=== PATIENT | female | born 1945 | race Caucasian/White ===

== ENCOUNTER → 2016-11-10 | Outpatient (CLI) | payer OTHER ==
[~2016-11-10] MED LIST: ALPRAZOLAM0.5 MG PO; ASPIRIN81 MG PO; CITRATE OF MAG296 M1 PO; COLACE PO; COLACE50 MG PO; DESYREL100 MG PO; DEXAMETHASONE4 MG PO; DULERA 100 MCG/13 GM INH; ECHINACEA 5001 EACH PO; FLEXERIL10 M1 PO; HCTZ PO; KEFLEX500 M1 PO; LASIX20 MG PO; LISINOPRIL-HCTZ1 T17 PO; LISINOPRIL20 MG PO; LORTAB 7.51 TAB PO; MELOXICAM15 MG PO; METOPROLOL TAR25 MG PO; METOPROLOL TART25 MG PO; MONTELUKAST SOD10 MG PO; MOTRIN600 M1 PO; MULTI-DAY VITAM1 TAB PO; NAPROSYN500 MG PO; OCUVITE TABLET1 TA1 PO; OMNICEF300 M1 PO; OXYGEN INH; OYSTER CALCIUM500 MG PO; PAROXETINE PO; PREDNISONE10 MG PO; PROAIR RESPICL90 MCG INH; SIMVASTATIN20 MG PO; SINGULAIR PO; SYMBICORT INH; TRAZODONE HCL100 MG PO; WELLBUTRIN XL150 M2 PO; ZESTORETIC 20-1 EACH PO; [UNRECOGNIZED DRUG - OTHER]
[2016-11-10 18:30] LABS: POC - CREATININE 0.88 mg/dL (0.44-1.03); POC - GFR >60.0 mL/min (>60)
== END | disposition home or self-care (01) ==
LOC: SMRI 17:22
PROVIDERS: Radiology Radiation Oncology
DX: C34.90 Malignant neoplasm of unspecified part of unspecified bronchus or lung (principal)
CPT/HCPCS: 82565

== ENCOUNTER → 2016-11-15 | Outpatient (CLI) | payer OTHER ==
--- NOTE | ~2016-11-15 | MR17 ---
[facility] A Service of [facility] & [facility] RADIOLOGY TEXT RESULTS PATIENT: CARISSA BINGHAM LOCATION: [facility] : 47 UNIT #: [id number] AGE: [address]: Christopher Espitia MD SEX: F ORDER DR: [id number] [address] [address] [id number] O MR#: [id number] Acc #: [id number] NAME: CARISSA BINGHAM : 1945 SEX: F STUDY DATE/TIME: 11/15/2016 18:32 UNIT: [facility] ROOM: STUDY DESCRIPTION: MR Brain WWo Contrast Attending Physician: Christopher Espitia M.D. Referring Physician: Christopher Espitia M.D. Ordering Physician: Christopher Espitia M.D. Primary Care Physician: Landon Chavarria M.D. MRI CENTER REPORT This report is preliminary unless electronic signature is present. EXAM MRI of the brain with and without contrast dated 11/15/2016 COMPARISON MRI of the brain with and without contrast dated 09/13/2016 HISTORY Lung cancer was diagnosed in September 2016. Metastasis workup. FINDINGS Multisequence, multiplanar imaging of the brain was obtained with and without contrast. GFR measured greater than 60. 15 mL of MultiHance was administered intravenously. There are multiple hyperintense T2 nonenhancing lesions in the white matter, right genu of internal capsule and adjacent structures including right thalamus, posteromedial left thalamus, bilateral insular cortex and medial to it, roman. Stable. No enhancing intracranial mass, hydrocephalus, hemorrhage or midline shift is seen. Thick slices through the sella with the pituitary gland and pineal region are unremarkable. Degenerative changes are noted in the cervical spine. Nasal septum is deviated to the right. Paranasal sinuses, orbits of the ocular structures and mastoids are unremarkable. IMPRESSION 1. No enhancing mass to suggest metastasis. 2. Nonenhancing multiple hyperintense T2 signal lesions are scattered throughout the brain, stable when compared to the previous study from 2 months. They are suggestive of moderate chronic microvascular ischemic change and old lacunar infarcts based on age and statistics. [facility] A Service of [facility] & [facility] RADIOLOGY TEXT RESULTS PATIENT: CARISSA BINGHAM LOCATION: [facility] : 47 UNIT #: [id number] AGE: [address]: Christopher Espitia MD SEX: F ORDER DR: Dictated by... Tabitha Guo M.D. THIS IS AN ELECTRONICALLY VERIFIED REPORT Tabitha Guo M.D. at 11/17/2016 3:03 PM CPR/to TD: 11/16/2016 17:56 JOB #: [id number] MRI CENTER REPORT
== END | disposition home or self-care (01) ==
LOC: SMRI 18:03
DX: C34.90 Malignant neoplasm of unspecified part of unspecified bronchus or lung (principal); G93.89 Other specified disorders of brain
CPT/HCPCS: 70553; A9581

== ENCOUNTER 2016-11-28 10:20 | Inpatient (IN) | payer OTHER ==
--- NOTE | ~2016-11-28 | CO ---
Unit #: [id number] #: [id number] Patient: CARISSA BINGAHM [id number] [address] [place], [place] [address] [id number] I MR#: [id number] NAME: CARISSA BINGHAM. ROOM: [facility] Age: 71 Sex: F Admission Date: 11/28/2016 : 1945 Attending Physician: Shea Ramos M.D. Primary Care Physician: Landon Chavarria M.D. Consultation Date: 11/28/2016 CONSULTATION REPORT HISTORY OF PRESENT ILLNESS This is a 71-year-old lady with a history of small cell lung cancer, diagnosed September 2016. She is status post XRT. At that time, she was discovered to have post obstructive pneumonia. The patient had a left lower lobe effusion with infiltrate. Now, she presents with two days of worsening shortness of air, worsening effusion bilaterally. She has got worse confusion. She is having cough productive of sputum. The white count is 13.7 on presentation. The patient is also having dyspnea with minimal exertion. The temperature is 102.1. The lactic acid is 2.5. EKG showed atrial fibrillation with RVR. Therefore, patient is admitted for sepsis, postobstructive pneumonia. The patient is given vancomycin, Zosyn, as well as, Solu-Medrol, tobramycin. REVIEW OF SYSTEMS The review of systems is unobtainable from the patient because she is somewhat lethargic. PAST MEDICAL HISTORY 1. Significant for admission for postobstructive pneumonia, September 2016. 2. History of lung cancer, small cell, diagnosed September 2016, followed by Dr. Espitia and Dr. Segovia. Last radiation treatment November 24. 3. COPD, followed by Dr. Dumont. 4. Chronic respiratory failure on 4 L nasal cannula. 5. Hypertension. PAST SURGICAL HISTORY 1. Cholecystectomy. 2. History of wrist surgery x2. 3. History of cardiac catheterization, January 21, 2013. 4. Bronchoscopy. SOCIAL HISTORY The patient lives with her [id number] who is her POA. She walks with a walker and with wheelchair. Smokes intermittently. No alcohol. No polysubstance use. FAMILY HISTORY Notable for lung cancer. CODE STATUS The patient is a full code. Unit #: [id number] #: [id number] Patient: CARISSA BINGHAM ALLERGIES The patient has no known medical allergies. HOME MEDICATIONS 1. Symbicort 160/4.5 two puffs inhaled daily. 2. Alprazolam 0.5 mg daily p.r.n. 3. Paroxetine 20 mg daily. 4. Dexamethasone 4 mg daily with each radiation dose. 5. Lortab 7.5 mg p.r.n. 6. Lisinopril 20/25 daily. 7. Simvastatin 20 mg daily. 8. Trazodone 100 mg every evening. 9. Singulair 10 mg daily. PHYSICAL EXAMINATION VITAL SIGNS: T-current 98.1, pulse 111, respiratory rate 25, blood pressure 109/63 on 0.03 Valdez-Synephrine. The patient is saturating 93% on 15 L Venti mask. The ins and outs not recorded. CHEST: Reveals rhonchi bilaterally. CARDIOVASCULAR: Regular rate. No gallop. ABDOMEN: Soft, nontender, nondistended. EXTREMITIES: Shows no evidence of edema. NECK: Shows no accessory muscle use. DIAGNOSTIC STUDIES LABORATORY: Procalcitonin is 0.46. Lactic acid is 2.4. Magnesium is 1. TSH 1.01. B12 and folate are okay. The arterial blood gas is 7.46, 45, 42, and 75. Flu swab is negative. Ammonia 13. CMP significant for BUN and creatinine of 44 and 1.1, potassium 4.5, magnesium 1, albumin 3, otherwise within normal limits. IMAGING: CT head is normal. Chest x-ray shows right lower lobe infiltrate, significant. ASSESSMENT AND PLAN 1. Neurologic: Probably metabolic encephalopathy. CT head is negative. Will observe closely. Keep head of the bed up. I would like to do clear liquid diet for now and we are going to have speech therapy evaluate. Patient also is having chronic obstructive pulmonary disease. Therefore, she is on Solu-Medrol. 2. Patient is having atrial fibrillation with rapid ventricular response: She is being rate controlled, followed by cardiology. 3. Gastrointestinal: The patient has had poor p.o. intake. Will give her some clear liquids for now. 4. We are going to continue to humidify oxygen and do chest physiotherapy. Thank you very much for this consult and allowing us to participate in the care of this patient. Dictated by... Felecia Sanchez M.D. / Unit #: [id number] #: [id number] Patient: CARISSA BINGHAM TD: 11/29/2016 16:09 JOB #: [id number] CONSULTATION REPORT Page 1 of 1 X Junior Sanchez MD CONSULTATION REPORT
--- NOTE | ~2016-11-28 | EKG ---
PATIENT: CARISSA BINGHAM UNIT #: [id number] Ventricular Rate: 160 BPM Atrial Rate: 187 BPM QRS Duration: 162 ms Q-T Interval: 284 ms QTC Calculation(Bezet): 463 ms Calculated R [place]: 93 degrees Calculated T [place]: 27 degrees Diagnosis Line: Atrial fibrillation with rapid ventricular Diagnosis Line: response with premature ventricular or aberrantly Diagnosis Line: conducted complexes Diagnosis Line: Baseline wander Diagnosis Line: Non-specific intra-ventricular conduction block Diagnosis Line: Abnormal ECG Diagnosis Line: When compared with ECG of 11-SEP-2016 12:36, Diagnosis Line: Atrial fibrillation has replaced Sinus rhythm Diagnosis Line: Vent. rate has increased BY 53 BPM Diagnosis Line: QRS duration has increased Diagnosis Line: ST less depressed in Anterior leads Diagnosis Line: Nonspecific T wave abnormality, worse in Anterior Diagnosis Line: leads Diagnosis Line: Confirmed by JJ JOAQUIN MD ([id number]) on 11/28/2016 Diagnosis Line: 11:04:25 PM INTERPRETING MD: JEMAL JONES
--- NOTE | ~2016-11-28 | DS ---
Unit #: [id number] #: [id number] Patient: CARISSA BINGHAM [id number] [address] [address] [id number] I MR#: [id number] NAME: CARISSA BINGHAM. ROOM: 227 Age: 71 Sex: F Admission Date: 11/28/2016 : 1945 Discharge Date: 12/03/2016 Attending Physician: Elizabeth San M.D. Referring Physician: Landon Chavarria M.D. Primary Care Physician: Landon Chavarria M.D. DISCHARGE SUMMARY REVISED REPORT ADDENDUM DATE OF December 04, 2016 at 0115. Pleasant 71-year-old female with small cell lung cancer. Patient could not tolerate chemotherapy or radiation. She failed to thrive and rapidly declined. Her symptoms were controlled, and she subsequently has . Dictated by... Tom Choi/deep TD: 12/04/2016 13:42 JOB #: [id number] DISCHARGE SUMMARY Page 1 of 1 X Elizabeth San MD X DISCHARGE SUMMARY
--- NOTE | ~2016-11-28 | CR72 ---
[facility] A Service of [facility] & [facility] RADIOLOGY TEXT RESULTS PATIENT: CARISSA BINGHAM LOCATION: [place] [address]- : 47 UNIT #: [id number] AGE: [address]: Shea Ramos MD SEX: F ORDER DR: [id number] [place] [address] [facility]. [place], [place] [address] [id number] I MR#: [id number] Acc #: [id number] NAME: CARISSA BINGHAM : 1945 SEX: F STUDY DATE/TIME: 11/30/2016 8:35 UNIT: [facility] ROOM: [facility] STUDY DESCRIPTION: CR Chest Single View Portable Attending Physician: Shea Ramos M.D. Referring Physician: Landon Chavarria M.D. Ordering Physician: [facility] Primary Care Physician: Landon Chavarria M.D. MEDICAL IMAGING REPORT This report is preliminary unless electronic signature is present EXAM Portable chest x-ray, 11/30/16 HISTORY Status post thoracentesis. FINDINGS AP radiograph of the chest is presented. COMPARISON: Chest radiograph 11/30/16 at 03:40 hours. The patient is status post right thoracentesis with drainage approximately 1,000 pleural fluid. Please see separate dictation for thoracentesis. The heart shows stable enlargement. Lungs moderately well inflated. Underlying vascular congestion stable. Abnormally prominent interstitial markings stable. Patchy airspace densities bilateral lung zones probably reflect a combination of airspace edema and basilar atelectasis. Atelectasis likely more pronounced on the right than left due to right pleural effusion. Moderate right pleural effusion persists. No pneumothorax. There is an ill defined left lateral costophrenic sulcus. The possibility of a very small left pleural effusion could be considered. Dictated by... Mikael Goff M.D. THIS IS AN ELECTRONICALLY VERIFIED REPORT Mikael Goff M.D. at 12/01/2016 5:55 PM ZEESHAN/abdirahman TD: 11/30/2016 10:49 [facility] A Service of [facility] & [facility] RADIOLOGY TEXT RESULTS PATIENT: CARISSA BINGHAM LOCATION: [place] [address] : [birth year] UNIT #: [id number] AGE: [address]: Shea Ramos MD SEX: F ORDER DR: JOB #: [id number] MEDICAL IMAGING REPORT Page 1 of 1 COPY
--- NOTE | ~2016-11-28 | EKG ---
PATIENT: CARISSA BINGHAM UNIT #: [id number] Ventricular Rate: 100 BPM Atrial Rate: 133 BPM QRS Duration: 98 ms Q-T Interval: 336 ms QTC Calculation(Bezet): 433 ms Calculated R [place]: 63 degrees Calculated T [place]: 55 degrees Diagnosis Line: Atrial fibrillation Diagnosis Line: Abnormal ECG Diagnosis Line: When compared with ECG of 28-NOV-2016 09:11, Diagnosis Line: (unconfirmed) Diagnosis Line: Vent. rate has decreased BY 60 BPM Diagnosis Line: QRS duration has decreased Diagnosis Line: ST less depressed in Lateral leads Diagnosis Line: Nonspecific T wave abnormality, improved in Diagnosis Line: Anterior leads Diagnosis Line: Confirmed by JOSÉ MIGUEL MCDONALD MD ([id number]) on 11/29/2016 Diagnosis Line: 10:27:54 PM INTERPRETING MD: HARRY JONES
--- NOTE | ~2016-11-28 | EKG ---
PATIENT: CARISSA BINGHAM UNIT #: [id number] Ventricular Rate: 155 BPM Atrial Rate: 163 BPM QRS Duration: 96 ms Q-T Interval: 266 ms QTC Calculation(Bezet): 427 ms Calculated R [place]: 52 degrees Calculated T [place]: -36 degrees Diagnosis Line: Atrial fibrillation with rapid ventricular Diagnosis Line: response Diagnosis Line: Nonspecific ST abnormality , probably digitalis Diagnosis Line: effect Diagnosis Line: Abnormal QRS-T angle, consider primary T wave Diagnosis Line: abnormality Diagnosis Line: Abnormal ECG Diagnosis Line: When compared with ECG of 30-NOV-2016 05:48, Diagnosis Line: (unconfirmed) Diagnosis Line: Non-specific change in ST segment in Inferior Diagnosis Line: leads Diagnosis Line: ST now depressed in Lateral leads Diagnosis Line: Confirmed by MILES LI MD ([id number]) on Diagnosis Line: 12/04/2016 2:08:29 PM INTERPRETING MD: MAVIS
--- NOTE | ~2016-11-28 | CR72 ---
[facility] A Service of [facility] & [facility] RADIOLOGY TEXT RESULTS PATIENT: CARISSA BINGHAM LOCATION: [place] [address] : [birth year] UNIT #: [id number] AGE: [address]: Shea Ramos MD SEX: F ORDER DR: [id number] [facility] [address] [facility]. [place], [place] [address] [id number] I MR#: [id number] Acc #: [id number] NAME: CARISSA BINGHAM : 1945 SEX: F STUDY DATE/TIME: 11/30/2016 3:40 UNIT: [facility] ROOM: [facility] STUDY DESCRIPTION: CR Chest Single View Portable Attending Physician: Shea Ramos M.D. Referring Physician: Landon Chavarria M.D. Ordering Physician: Junior Sanchez Primary Care Physician: Landon Chavarria M.D. MEDICAL IMAGING REPORT This report is preliminary unless electronic signature is present EXAM Portable chest HISTORY Pneumonia. Respiratory failure. COMPARISON 11/29/2016 FINDINGS Portable view chest demonstrates no significant change in cardiopulmonary status. Continued moderate-sized right pleural effusion with loss of the right hemidiaphragm and blunting the right CP angle and fluid tracking along the right lateral thorax. Diffuse pulmonary vascular congestion. Diffuse haziness over both lungs may represent a combination interstitial and alveolar edema. No sizeable left-sided effusion. Heart size within normal limits. Mediastinum remarkable for atherosclerotic changes. Venous access port overlying the right chest distal tip mid SVC. No pneumothorax. Dictated by... Randy Irvin M.D. THIS IS AN ELECTRONICALLY VERIFIED REPORT Randy Irvin M.D. at 11/30/2016 12:26 PM Ed TD: 11/30/2016 08:43 JOB #: [id number] MEDICAL IMAGING REPORT Page 1 of 1 COPY
--- NOTE | ~2016-11-28 | EKG ---
PATIENT: CARISSA BINGHAM UNIT #: [id number] Ventricular Rate: 113 BPM Atrial Rate: 241 BPM QRS Duration: 88 ms Q-T Interval: 258 ms QTC Calculation(Bezet): 353 ms Calculated R [place]: 69 degrees Calculated T [place]: 53 degrees Diagnosis Line: Atrial fibrillation with rapid ventricular Diagnosis Line: response Diagnosis Line: Abnormal ECG Diagnosis Line: Diagnosis Line: Confirmed by MILES LI MD ([id number]) on Diagnosis Line: 12/04/2016 2:07:42 PM INTERPRETING MD: MAVIS
--- NOTE | ~2016-11-28 | CR72 ---
[facility] A Service of [facility] & [facility] RADIOLOGY TEXT RESULTS PATIENT: CARISSA BINGHAM LOCATION: [place] [address] : [birth year] UNIT #: [id number] AGE: [address]: Shea Ramos MD SEX: F ORDER DR: [id number] [facility] [address]. [place], [place] [address] [id number] I MR#: [id number] Acc #: [id number] NAME: CARISSA BINGHAM : 1945 SEX: F STUDY DATE/TIME: 11/29/2016 4:10 UNIT: [facility] ROOM: [facility] STUDY DESCRIPTION: CR Chest Single View Portable Attending Physician: Sherrell Fraser M.D. Referring Physician: Landon Chavarria M.D. Ordering Physician: Felecia Sanchez M.D. Primary Care Physician: Landon Chavarria M.D. MEDICAL IMAGING REPORT This report is preliminary unless electronic signature is present EXAM Frontal chest, 11/29/2016 INDICATION 71-year-old female with shortness of air, cough, chills, weakness and confusion. Symptoms for a day. History of hypotension, atrial fibrillation. TECHNIQUE Frontal chest. Compared with 11/28/2016. FINDINGS MediPort catheter from right-sided approach unchanged. Cardiac silhouette enlarged but stable. Interval worsening of interstitial and alveolar opacities in the right lung. Increasing haziness in the right lung with a right-sided effusion that remains present and may be partially layering on the right on today's exam to account for the increasing haziness. There is more confluent atelectasis or infiltrate in the right lung base. No pneumothorax on either side. No distinct new left-sided opacities. IMPRESSION 1. Worsening appearance of the chest with increasing haziness throughout the right lung. This may represent a component of layering pleural fluid on the right. The patient has a right-sided effusion with more confluent atelectasis or infiltrate in the right lung base. 2. No new opacities on the left. Trace to small left effusion. STAT * RESULT [facility]. [facility] A Service of [facility] & [facility] RADIOLOGY TEXT RESULTS PATIENT: CARISSA BINGHAM LOCATION: [place] [address] : [birth year] UNIT #: [id number] AGE: [address]: Shea Ramos MD SEX: F ORDER DR: Dictated by... Artemio Gautam M.D. THIS IS AN ELECTRONICALLY VERIFIED REPORT Artemio Gautam M.D. at 11/29/2016 10:01 PM ADONIS/paulo TD: 11/29/2016 06:07 JOB #: [id number] MEDICAL IMAGING REPORT Page 1 of 1 COPY
--- NOTE | ~2016-11-28 | XA203 ---
[facility]. [facility] A Service of [facility] & [facility] RADIOLOGY TEXT RESULTS PATIENT: CARISSA BINGHAM LOCATION: [address] : [birth year] UNIT #: [id number] AGE: [address]: Shea Ramos MD SEX: F ORDER DR: [id number] [address] [address] [id number] I MR#: [id number] Acc #: [id number] NAME: CARISSA BINGHAM : 1945 SEX: F STUDY DATE/TIME: 11/30/2016 7:38 UNIT: [facility] ROOM: [facility] STUDY DESCRIPTION: XA Thoracentesis Attending Physician: Shea Ramos M.D. Referring Physician: Landon Chavarria M.D. Ordering Physician: Felecia Sanchez M.D. Primary Care Physician: Landon Chavarria M.D. MEDICAL IMAGING REPORT This report is preliminary unless electronic signature is present EXAM Ultrasound-guided right thoracentesis 11/30/2016 INDICATIONS 71-year-old female with right pleural effusion. PROCEDURE Risks, benefits and alternatives of the procedure were discussed with the patient and informed consent was obtained. In the procedure room a time-out was performed confirming correct patient and procedure. All elements of maximum sterile-barrier technique utilized according guidelines appropriate for the procedure. TECHNIQUE/FINDINGS Ultrasound of the right posterior hemithorax was performed demonstrating a large right pleural effusion. The overlying skin was prepped and draped in the usual sterile fashion. 1% lidocaine utilized to anesthetize the skin and underlying subcutaneous tissues. Next under ultrasound guidance 5-Slovak Yueh catheter was inserted into the pleural space and 1000 mL of fluid was removed and sample was sent to the lab. The needle was removed and a sterile dressing was applied. No immediate complications. IMPRESSION Successful ultrasound-guided right thoracentesis. Dictated by... Mitesh Irvin M.D. THIS IS AN ELECTRONICALLY VERIFIED REPORT Mitesh Irvin M.D. at 11/30/2016 4:31 PM ARS/jf STS. [facility] A Service of [facility] & [facility] RADIOLOGY TEXT RESULTS PATIENT: CARISSA BINGHAM LOCATION: [facility] : [birth year] UNIT #: [id number] AGE: [address]: Shea Ramos MD SEX: F ORDER DR: TD: 11/30/2016 15:58 JOB #: [id number] MEDICAL IMAGING REPORT Page 1 of 1 COPY
--- NOTE | ~2016-11-28 | HP ---
Unit #: [id number] #: [id number] Patient: CARISSA BINGHAM [id number] [address] [place], [place] [address] [id number] MR#: [id number] NAME: CARISSA BINGHAM ROOM: Age: 71 Sex: F Admission Date: 11/28/2016 : 1945 Attending Physician: Javier Cui M.D. Referring Physician: Landon Chavarria M.D. Primary Care Physician: Landon Chavarria M.D. HISTORY AND PHYSICAL CHIEF COMPLAINT Short of air. HISTORY OF PRESENT ILLNESS The patient is a 71-year-old female with past medical history of small cell lung cancer, COPD, chronic respiratory failure, hypertension who presented to the emergency department for evaluation of the above. History is obtained from chart review and discussion with the ER staff as well as the patient's dorawn-rg-zxl, Nunu Del Valle, who is her qkdqu-vj-kftwlxbu and with whom she lives. Apparently, the patient has had a two to three day history of increasing shortness of breath and occasionally productive cough. She has also had fever and chills. She has also been somewhat confused. Family states that she has been "[place]." She has been shouting. She has been increasingly generally weak. Family states that she has been declining since she was diagnosed with lung cancer in September 2016. She is followed by Dr. Segovia and Dr. Espitia regarding the lung cancer. Her last radiation treatment was on November 24, 2016. She has not had chemotherapy yet. She has had decreased appetite but no vomiting or diarrhea. In the emergency department, initial oxygen saturation was 93% on 50% Venturi mask. Temperature was 97.6 but did reach 102.1. Initial pulse was 161, respirations 32. Chest x-ray shows bilateral pleural effusions and bilateral infiltrates. White blood cell count is 13.7. Lactic acid was 2.5. EKG showed atrial fibrillation with rapid ventricular response and a rate of 160 beats per minute. There was also some ST depression leads V4 through V6. She was given vancomycin, Zosyn, tobramycin in the emergency department as well as Solu-Medrol and Tylenol. Additionally, she is receiving her second liter of normal saline. She was also given 10 mg of Cardizem and is currently on a Cardizem drip at 10 mg per hour; however, at the time of my evaluation, blood pressure is 78 systolic. She is being admitted to [facility] for evaluation and further treatment. PAST MEDICAL HISTORY 1. Admission to [facility], September 11, 2016, for postobstructive pneumonia. 2. Lung cancer, small cell, diagnosed in September 2016, followed by Dr. Espitia and Dr. Segovia. Her last radiation treatment was on November 24. She has not received chemotherapy. 3. COPD, followed by Dr. Dumont. 4. Chronic respiratory failure on 4 L of oxygen per nasal cannula. 5. Hypertension. Unit #: [id number] #: [id number] Patient: CARISSA BINGHAM PAST SURGICAL HISTORY 1. Cholecystectomy. 2. Cyst removal from wrist. 3. Carpal tunnel surgery. 4. Bronchoscopy. 5. Cardiac catheterization, January 29, 2013, showed angiographically normal coronary arteries with normal left ventricular systolic function. SOCIAL HISTORY The patient lives with her nqxxst-ga-dsy, Nunu Del Valle, who is also her rrvxb-ue-wzumcyjq. She walks with a walker or is in a wheelchair. She continues to smoke a few cigarettes daily. CODE STATUS Her code status is a full code. FAMILY HISTORY Notable for lung cancer. ALLERGIES No known allergies. HOME MEDICATIONS 1. Symbicort 160/4.5 two puffs inhaled daily. 2. Alprazolam 0.5 mg daily p.r.n. 3. Paroxetine 20 mg daily. 4. Dexamethasone 4 mg daily with radiation. 5. Lortab 7.5 mg daily p.r.n. 6. Lisinopril/hydrochlorothiazide 20/25 daily. 7. Simvastatin 20 mg daily. 8. Trazodone 100 mg in the evening. 9. Singulair 10 mg daily. REVIEW OF SYSTEMS A complete review of systems is negative except as indicated in the HPI. The patient has never been told she had an irregular heartbeat. She was apparently seen by cardiology, January 27, 2013, for chest pain. A cardiac cath was done on November 29 that showed angiographically normal coronary arteries. DIAGNOSTIC STUDIES LABORATORY: Troponins less than 0.05. Complete blood count notable for white blood cell count of 13.7. INR is 1.1. Arterial blood gas shows pH of 7.507, pCO2 of 36.9, pO2 of 64.7 on Venturi mask with a FIO2 of 50%. Lactic acid is 2.5. Comprehensive metabolic panel notable for chloride of 92, BUN and creatinine 44 and 1.1 respectively. Albumin is 3. Ammonia level is 13. Rapid flu screen is negative. IMAGING: Chest x-ray shows bilateral pleural effusions and bilateral infiltrates. CT of the head shows nothing acute. CARDIOVASCULAR: EKG shows atrial fibrillation with rapid ventricular response at a rate of [address] depression is noted in leads V3 through V6. Unit #: [id number] #: [id number] Patient: CARISSA BINGHAM PHYSICAL EXAMINATION VITAL SIGNS: Temperature is 97.6 but did reach 102.1, pulse 161 (most recently 108), respirations 32, blood pressure 100/59 (most recently 75/42). GENERAL: The patient is a female who is lethargic but wakes to physical stimuli. HEENT: The head is atraumatic. Mucous membranes are moist. NECK: Supple. Trachea is midline. CARDIOVASCULAR: Irregular. LUNGS: Demonstrate scattered wheezes and rhonchi. Breathing is mildly labored. She is currently on Venturi mask at 50%. ABDOMEN: Soft, nontender with bowel sounds present in all four quadrants. EXTREMITIES: Nontender with no pedal edema. NEUROLOGIC: The patient is lethargic. She is able to answer some questions. She is oriented x3. She is moving all extremities. She follows commands. PSYCHIATRIC: The patient is cooperative. SKIN: Skin of examined areas is warm and dry. ASSESSMENT The patient is a 71-year-old female with: 1. Acute on chronic respiratory failure, hypoxic. 2. Healthcare-associated pneumonia: The patient received vancomycin, Zosyn, and tobramycin in the emergency department. 3. Sepsis with lactic acid of 2.5. The patient is currently on her second liter of normal saline. 4. Bilateral pleural effusions. 5. Small cell lung cancer with last radiation treatment being November 24, 2016. She is followed by Dr. Segovia and Dr. Espitia. 6. Atrial fibrillation with rapid ventricular response: The patient received 10 mg of Cardizem and is currently on Cardizem drip at 10 mg per hour; however, blood pressure is currently in the 70s systolic and so I have discontinued that. 7. Chronic obstructive pulmonary disease with continued tobacco abuse. 8. Hypertension: The patient's blood pressure is currently running low. 9. Altered mental status: Per the family, she has been "shouting" and acting as if she was "in [facility]." She is currently oriented x3 and somewhat lethargic. PLAN 1. Admit to ICU. 2. NPO until more awake and passes bedside swallow. 3. Normal saline at 75 mL and hour. 4. Titrate oxygen. 5. Repeat arterial blood gas. 6. Blood cultures x2. 7. Sputum culture and sensitivity. 8. Procalcitonin level. 9. Streptococcal legionella urine antigen. 10. Vancomycin, tobramycin, Zosyn IV pending further workup. 11. Solu-Medrol 80 mg IV q.[address] Dumont, the patient's delivery man, regarding acute on chronic respiratory failure and healthcare-associated pneumonia. 13. Serial cardiac enzymes. 14. Lovenox 1 mg/kg subcutaneous q.12 hours with first dose now pending Dr. Jules's recommendations. 15. A 2D echo for further evaluation of new atrial fibrillation. 16. Check thyroid stimulating hormone, fasting lipid panel, and magnesium Unit #: [id number] #: [id number] Patient: CARISSA BINGHAM. 17. Monitor heart rate closely. 18. Stop Cardizem. 19. Monitor blood pressure closely. 20. Levophed drip for MAP greater than 65. 21. Sepsis protocol with repeat lactic acid. 22. B12 and folate. 23. Neuro checks. 24. Solu-Medrol. 25. Repeat labs in the morning. 26. Sequential compression devices for deep venous thrombosis prophylaxis. 27. Protonix for gastrointestinal prophylaxis since the patient will be on Solu-Medrol. 28. Regarding code status, the patient is a full code. Thirty six minutes critical care time spent in the care of this patient (12 to 12:36 p.m.). Dictated by Sherrell Fraser M.D. Paulette TD: 11/28/2016 13:04 JOB #: [id number] HISTORY AND PHYSICAL Page 1 of 1 X Sherrell Fraser MD HISTORY AND PHYSICAL
--- NOTE | ~2016-11-28 | CR72 ---
[facility] A Service of [facility] & [facility] RADIOLOGY TEXT RESULTS PATIENT: CARISSA BINGHAM LOCATION: [facility] [id number] : [birth year] UNIT #: [id number] AGE: [address]: Sherrell Fraser MD SEX: F ORDER DR: [id number] [facility] [address] [place], [place] [address] [id number] E MR#: [id number] Acc #: [id number] NAME: CARISSA BINGHAM : 1945 SEX: F STUDY DATE/TIME: 11/28/2016 9:43 UNIT: [facility] ROOM: STUDY DESCRIPTION: CR Chest Single View Portable Attending Physician: Javier Cui M.D. Referring Physician: Landon Chavarria M.D. Ordering Physician: Javier Cui M.D. Primary Care Physician: Landon Chavarria M.D. MEDICAL IMAGING REPORT This report is preliminary unless electronic signature is present EXAM Portable chest, 11/28 INDICATION Shortness of air and palpitations for 3 days. Smoker. History of lung cancer. FINDINGS AP portable chest is compared with 09/16/2016 as well as PET/CT from 09/26/2016. New right side Port-A-Cath has its tip in the SVC. Cardiomegaly is stable. There is a moderate-sized right pleural effusion and a trace left effusion. There is consolidation in the right fdh-xo-qkrez lung and at the left base. There is also some central vascular congestion. No pneumothorax. IMPRESSION Interval development of a moderate right effusion and a small left effusion. There are infiltrates noted in the right auf-re-tgycm lung and left base and possibly in the left perihilar lung as well. Patient has a known history of malignancy, but these findings may be secondary to pneumonia. No pneumothorax is seen. Dictated by... Inder Acosta Jr., M.D. THIS IS AN ELECTRONICALLY VERIFIED REPORT Inder Acosta Jr., M.D. at 11/28/2016 4:48 PM ARCELIA/vinny TD: 11/28/2016 12:37 JOB #: [id number] MEDICAL IMAGING REPORT [facility] A Service of [facility] & [facility] RADIOLOGY TEXT RESULTS PATIENT: CARISSA BINGHAM LOCATION: [place] [id number] : [birth year] UNIT #: [id number] AGE: [address]: Sherrell Fraser MD SEX: F ORDER DR: Page 1 of 1 COPY
--- NOTE | ~2016-11-28 | CO ---
Unit #: [id number] #: [id number] Patient: CARISSA NAZARIO [id number] [facility]. [address] [place], [place] [address] [id number] I MR#: [id number] NAME: CARISSA NAZARIO. ROOM: [facility] Age: 71 Sex: F Admission Date: 11/28/2016 : 1945 Attending Physician: Sherrell Fraser M.D. Primary Care Physician: Landon Chavarria M.D. Consultation Date: 11/28/2016 CONSULTATION REPORT REASON FOR CONSULTATION Atrial fibrillation with rapid ventricular response, and hypotension. HISTORY OF PRESENT ILLNESS This is a 71-year-old white female with history of being diagnosed in September of this year of small cell lung carcinoma. Her last radiation was 11/24/2016. She follows with Dr. Christopher Espitia and Dr. Segovia. She also has chronic respiratory failure, wears continuous home oxygen at 4 liters per nasal cannula; COPD; nicotine abuse. She had normal cath back [place] [address] Jules. EF was 60%. Patient lives with her fodhox-am-gsi who is her power of patent attorney. They have been helping take care of her since her diagnosis of lung cancer. They report that she has been having increased shortness of breath, increased productive cough, fever and chills and confused at times and increased weakness and lethargy. There is no indication and no complaints from the patient of chest pain, pain in her neck, bilateral jaw, shoulders, arms or elbows. No reports of any palpitations, dizziness, presyncope or syncope. In the emergency room, the patient's blood pressure was 100/59, heart rate 161, respirations 32, temperature 97.6, O2 saturation was 93% on 50% Venturi mask. Patient's EKG shows atrial fibrillation rapid ventricular response, ventricular rate of 160 beats per minute with some ST-T-wave abnormalities. Initial cardiac enzymes were negative. Lactic acid 2.5. WBC 13.1. Creatinine 1.1, potassium 4.5. The patient was given a 10 mg dose of IV Cardizem followed by a Cardizem drip at 10 mg/hour and her blood pressure decreased down in the 70s and after boluses of normal saline had to be initiated on Levophed. The patient also received some IV Solu-Medrol and Tylenol and started on IV antibiotics were obtained. The patient's temperature max was 102.1. The patient will be administered with sepsis, healthcare-associated pneumonia, respiratory failure. Cardiology has been consulted to assist with evaluating and managed atrial fibrillation with rapid ventricular response and hypotension. PAST MEDICAL HISTORY 1. January 2013, cardiac catheterization revealed LVEF of 60%, normal coronaries. 2. History of hypertension. 3. History of hyperlipidemia. 4. COPD. 5. Chronic respiratory failure, oxygen 4 liters nasal cannula Unit #: [id number] #: [id number] Patient: CARISSA NAZARIO. 6. History of small cell lung carcinoma diagnosed September 2016. Last radiation treatment 11/24/2016. No chemotherapy. 7. Nicotine abuse. PAST SURGICAL HISTORY 1. Cholecystectomy. 2. Cyst removed from wrist. 3. Carpal tunnel surgery. 4. Bronchoscopy that diagnosed her lung carcinoma. HOME MEDICATIONS 1. Symbicort 160/4.5 two puffs inhalation daily. 2. Alprazolam 0.5 mg p.o. daily p.r.n. 3. Paroxetine 20 mg one tablet p.o. daily. 4. Dexamethasone 4 mg daily with radiation. 5. Lortab 7.5 mg p.o. daily for pain. 6. Lisinopril/hydrochlorothiazide 20/25 one tablet p.o. daily. 7. Simvastatin 20 mg one tablet daily. 8. Trazodone 100 mg p.o. daily in the evening. 9. Singulair 10 mg p.o. daily. ALLERGIES No known drug allergies. SOCIAL HISTORY The patient is living with her nrqqzw-zm-iou, Nunu Del Valle, who is assisting with her care since her diagnosis of lung cancer. She is also her power of patent attorney. The patient ambulates with a walker and sometimes in a wheelchair. She continues to smoke a few cigarettes per day. She has been smoking most of her adult life. FAMILY HISTORY Positive for lung cancer. No known coronary artery disease in immediate family members. REVIEW OF SYSTEMS See details in HPI. PHYSICAL EXAMINATION VITAL SIGNS: Blood pressure 95/49, heart rate 106, respirations 18, temperature is down to 98.1, it did max at 102.1. O2 saturation is 94% on 50% Venturi mask. GENERAL: Ms. Nazario is a 71-year-old white female. She is lethargic, arouses easily with stimulation. NECK: Trachea midline. No thyromegaly, lymphadenopathy. Normal carotid upstrokes. No jugular venous distention. HEART: S1, S2. Regular rate and rhythm. No clicks, murmurs, or rubs. LUNGS: Diminished poor inspiratory effort. Scattered rhonchi. ABDOMEN: Soft, nontender. Positive bowel sounds are present. EXTREMITIES: Pedal pulses are palpable. No pedal edema. DIAGNOSTIC STUDIES LABORATORY: ABG pH 7.373, pCO2 is 45.9, pO2 is 74.3, HCO3 26.7, O2 saturation 92.3, FiO2 of 50 on 15 liter flow. Glucose 106, BUN 44, creatinine 1.1, EGFR 50.8, sodium 135, potassium 4.5, chloride 92, CO2 is 28, calcium 10, magnesium just resulted and it is 1.0, total protein 6.8, albumin 3.0, total bilirubin 0.9, AST 28, ALT 26, alkaline phosphatase 63. Unit #: [id number] #: [id number] Patient: CARISSA NAZARIO Ammonia level 13. Lactic acid level 2.5 and later 2.4. WBC 13.7, hemoglobin 12.6, hematocrit 38.2, platelets 276. Initial cardiac enzymes CKMB is 3.6 with troponin less than 0.05; CKMB 1.9 and troponin less than 0.05. Negative influenza A and B. Urinalysis is pending. Blood cultures are pending. IMAGING: Chest x-ray shows development of moderate right effusion and a small left effusion and infiltrates noted in the right mid to lower lung and left base and possibly in the left perihilar lung as well. CT of the head without contrast shows no clearly acute abnormality seen. Chronic changes of some mild atrophy, bilateral chronic lacunar infarcts in the thalami and periventricular and deep white matter tracts, probable sequelae of chronic microvascular ischemia. CARDIOVASCULAR: EKG today shows atrial fibrillation with ventricular rate 160 beats per minute with ST-T-wave depression in anterolateral leads and ST elevation in aVR only, poor R-wave progression. IMPRESSION 1. Ueyze-bp-raqexwm respiratory failure. 2. Healthcare-acquired pneumonia. 3. Sepsis. 4. Altered mental status, increased lethargy. 5. Bilateral pleural effusions. 6. History of small cell lung carcinoma. 7. Atrial fibrillation with rapid ventricular response, questionable onset. 8. Chronic obstructive pulmonary disease with chronic respiratory failure continuous home oxygen. 9. Hypertension. 10. Hyperlipidemia. 11. Normal coronaries on cardiac catheterization January 2013. 12. LVEF of 60% on cardiac catheterization in 2012. 13. Nicotine abuse. PLAN 1. Cardiology consult to assist with evaluation and management. 2. At present, patient's heart rate is in the 90s and low 100s, still remains in atrial fibrillation. Occasionally will see what looks appear to be a sinus beat. Patient was started initially on some IV Cardizem but had to stop because of hypotension. Patient is on IV fluids normal saline at 75 per hour and also including pressor Levophed at 0.02 mcg. Patient's blood pressure is currently in the 90s systolically. 3. The patient has been started on anticoagulation Lovenox 1 mg/kg subcu q.12 h. 4. Obtain a fasting lipid profile and TSH and evaluate. 5. Right now unable to start on a beta david because the patient's hypotension. Will obtain a 2D echo to reevaluate LV function and valves. 6. Magnesium has been found to be 1.0. Will supplement with 2 grams IV times 1 now and then another 2 grams later today. 7. Sepsis protocol in progress. 8. Supportive care with IV fluids and pressors. 9. Currently, patient is a full code. The oyayrp-rn-ace is the power of patent attorney and at this point she has not expressed wishes to be a do not resuscitate. Unit #: [id number] #: [id number] Patient: CARISSA NAZARIO 10. Dr. Vega with pulmonology has been consulted to assist with management. 11. Blood and sputum cultures are pending. The patient has been started on IV antibiotics. 12. Continue supportive care. 13. Further recommendations pending per Dr. Malcolm. When the patient is more alert and oriented, will discuss with the patient concerning smoking cessation. Information for smoking cessation will be provided to patient. Thank you very much for allowing us to assist in the care of this patient. Dictated by... Angelita Sherman.P.RTajN. for Tom Mckenzie/jone TD: 11/28/2016 16:56 JOB #: [id number] CONSULTATION REPORT Page 1 of 1 X Yesika Dixon APRN CONSULTATION REPORT
--- NOTE | ~2016-11-28 | CR72 ---
[facility] A Service of [facility] & [facility] RADIOLOGY TEXT RESULTS PATIENT: CARISSA BINGHAM LOCATION: [place] [id number] : [birth year] UNIT #: [id number] AGE: [address]: Shea Ramos MD SEX: F ORDER DR: [id number] [facility] [address] [place], [place] [address] [id number] I MR#: [id number] Acc #: [id number] NAME: CARISSA BINGHAM : 1945 SEX: F STUDY DATE/TIME: 12/01/2016 5:23 UNIT: [facility] ROOM: [facility] STUDY DESCRIPTION: CR Chest Single View Portable Attending Physician: Shea Ramos M.D. Referring Physician: Landon Chavarria M.D. Ordering Physician: Felecia Sanchez M.D. Primary Care Physician: Landon Chavarria M.D. MEDICAL IMAGING REPORT This report is preliminary unless electronic signature is present EXAM Portable chest INDICATION Pleural effusion follow up. FINDINGS Today's portable view of the chest is compared with yesterday's study. There is a small to moderate right pleural effusion with right base atelectasis and there is a tiny left effusion. There has been no change. A Port-A-Cath is in good position. Dictated by... Chidi Pate M.D. THIS IS AN ELECTRONICALLY VERIFIED REPORT Chidi Pate M.D. at 12/01/2016 12:29 PM LISA/misael TD: 12/01/2016 09:04 JOB #: [id number] MEDICAL IMAGING REPORT Page 1 of 1 COPY
--- NOTE | ~2016-11-28 | DS ---
Unit #: [id number] #: [id number] Patient: CARISSA BINGHAM [id number] [address] [address] [id number] MR#: [id number] NAME: CARISSA BINGHAM. ROOM: [facility] Age: 71 Sex: F Admission Date: 11/28/2016 : 1945 Discharge Date: Attending Physician: Shea Ramos M.D. Referring Physician: Landon Chavarria M.D. Primary Care Physician: Landon Chavarria M.D. DISCHARGE SUMMARY DISCHARGE DIAGNOSES 1. Currently, patient is a DO NOT RESUSCITATE: Comfort measures only. 2. Small cell lung cancer: Patient could not tolerate chemotherapy and radiation therapy. 3. Acute on chronic hypercapnic/hypoxic respiratory failure. 4. Pleural effusion, status post thoracentesis. 5. Pneumonia. 6. Atrial fibrillation with rapid ventricular rate. 7. Anemia, most likely iron deficiency, chronic. 8. Hypermagnesemia. 9. Hypophosphatemia. 10. Severe protein malnutrition. 11. Elevated troponins, max 1.18. 12. Sepsis from pneumonia, healthcare-associated. 13. Staph aureus in her sputum positive. 14. Hypertension. 15. Change in mental status, most likely secondary to toxic metabolic encephalopathy. 16. History of chronic obstructive pulmonary disease. 17. Chronic respiratory failure, on 4 L oxygen. 18. Hyperlipidemia. 19. Smoking. CONSULTATION 1. Dr. Malcolm. 2. Dr. Sanchez. 3. Dr. Segovia. PROCEDURES The patient had thoracentesis on November 30. 1000 mL of fluid removed from right pleural space. LAB DATA Chest x-ray shows small to moderate right pleural effusion, atelectasis present. Tiny effusion on the left side present. Sputum cultures are growing Staphylococcus aureus. ABG - pH 7.47, carbon dioxide 37, oxygen 66. Sodium 136, potassium 3.5, creatinine 0.5, calcium 8.6, magnesium 1.7, WBC 12.3, hemoglobin 9.8, platelets 217. MRSA screen positive. Unit #: [id number] #: [id number] Patient: CARISSA BINGHAM CAT scan of the head shows motion-degraded. No acute abnormalities. Blood cultures negative. Legionella negative. Strep negative. Lactic acid elevated. Maximum is 2.5. HOSPITALIZATION COURSE 71-year-old admitted because of shortness of breath. Small cell lung cancer: Patient was not a good chemo candidate. Radiation has been started but the patient is very sick with severe hypoxia so radiation was on hold. Later, bridge expert, Dr. Sanchez and myself, talked to the patient. They agreed for DNR. Today, patient's POA and [id number], Mrs. Crain, (1) agree for comfort care. So, currently all the medications have been discontinued. She is on comfort measures only. She is on nasal cannula. She is on morphine, Ativan and Robinul. She will be transferred to Med/Surg. All the family at bedside. They agree for comfort care only. Acute on chronic hypoxic respiratory failure from lung cancer, pneumonia and pleural effusion: She had IV antibiotics and thoracentesis has been done. 1 L removed. Bilateral pleural effusion, mostly on the right side: 1 L of the pleural fluid has been removed by thoracentesis. Staph aureus healthcare-associated pneumonia: Patient was started on IV antibiotics, vancomycin and Zosyn. Atrial fibrillation with rapid ventricular rate: Patient seen by cardiology. They started on amiodarone and Lovenox and Cardizem. Anemia, acute on chronic iron deficiency: No active bleeding. Hypomagnesemia: Replaced with magnesium. Very poor prognosis. Patient is not a chemo candidate. Patient is too sick for radiation. Currently DNR, comfort measures only. Family at bedside. Discussed with the POA in detail. Dictated by... Tom Khalil TD: 12/01/2016 12:38 JOB #: [id number] Unit #: [id number] #: [id number] Patient: CARISSA BINGHAM DISCHARGE SUMMARY Page 1 of 1 X Shea Ramos MD DISCHARGE SUMMARY
--- NOTE | ~2016-11-28 | CT71 ---
[facility] A Service of [facility] & [facility] RADIOLOGY TEXT RESULTS PATIENT: CARISSA BINGHAM [facility] [birth year] UNIT #: [id number] AGE: [address]: Shea Ramos MD SEX: F ORDER DR: [id number] [facility] [address] [place], [place] [address] [id number] MR#: [id number] Acc #: [id number] NAME: CARISSA BINGHAM : 1945 SEX: F STUDY DATE/TIME: 11/28/2016 9:54 UNIT: [facility] ROOM: STUDY DESCRIPTION: CT Head Wo Contrast Attending Physician: Javier Cui M.D. Referring Physician: Landon Chavarria M.D. Ordering Physician: Javier Cui M.D. Primary Care Physician: Landon Chavarria M.D. MEDICAL IMAGING REPORT This report is preliminary unless electronic signature is present EXAM CT of the head 11/28/2016 HISTORY Confusion, short of air with palpitations for 3 days. Moving while laying flat. Prior history of hypertension. TECHNIQUE This CT examination was performed with one or more of the following radiation dose reduction techniques: automatic exposure control, adjustment of mA and/or kV according to patient size, and iterative reconstruction. FINDINGS CT head performed skull base through vertex without intravenous contrast. Comparison to MRI 11/15/[address] head 04/22/2013. Some images degraded by streak/motion artifact. No acute brainstem abnormality is seen. Focal areas of diminished density in the bilateral thalami are unchanged from prior studies and felt to reflect areas of chronic lacunar infarct. The dunne matter - white matter differentiation is preserved overall. There is no evidence of intracranial hemorrhage or acute cortical ischemia. Extensive periventricular and deep white matter tract hypodensities most likely reflecting sequelae of chronic microvascular ischemia. Similar appearance on prior studies. Midline structures are nondisplaced. The ventricles, cisterns and sulci show mild generalized enlargement consistent with mild generalized atrophy. There is no intra- or extraaxial mass effect or abnormal intracranial fluid collection. Visualized intraorbital soft tissues unremarkable. The visualized paranasal sinuses and mastoid air cells are clear. There are cavernous carotid and distal vertebral arterial calcifications. IMPRESSION 1. Motion degraded study. No clearly acute abnormality is seen in the STS. [facility] A Service of [facility] & [facility] RADIOLOGY TEXT RESULTS PATIENT: CARISSA BINGHAM LOCATION: [address] : [birth year] UNIT #: [id number] AGE: [address]: Shea Ramos MD SEX: F ORDER DR: brain. If the patient has ongoing neurologic symptoms, consider follow up imaging, preferably with MRI if the patient remains a candidate. 2. Chronic changes include the following: Mild generalized atrophy, bilateral chronic lacunar infarcts in the thalami, periventricular and deep white matter tract probable sequelae of chronic microvascular ischemia, vascular calcifications. Dictated by... Mikael Goff M.D. THIS IS AN ELECTRONICALLY VERIFIED REPORT Mikael Goff M.D. at 11/29/2016 6:04 PM ZEESHAN/misael TD: 11/28/2016 12:47 JOB #: [id number] MEDICAL IMAGING REPORT Page 1 of 1 COPY
[2016-11-28 09:34] LABS: HEMATOCRIT 38.2 % (35.0-45.0); HEMOGLOBIN 12.6 gm/dL (12.0-16.0); LYMPHOCYTE# 0.2 X10e3 (1.0-3.5); LYMPHOCYTE% 1.1 % (17.0-45.0); MEAN CELL VOLUME 87.2 FL (83-96); MEAN CORPUSCULAR HEMOGLOBIN 28.7 PG (28-34); MEAN PLATELET VOLUME 6.8 FL (6.5-11.5); MONOCYTE# 0.4 X10e3 (0-1.0); NEUTROPHIL# 13.2 X10e3 (1.5-7.1); NEUTROPHIL% 95.9 % (40-75); PLATELET COUNT 276 X10e3 (140-420); RED BLOOD COUNT 4.39 X10e (3.90-5.30); RED CELL DISTRIBUTION WIDTH 16.8 % (11.0-15.5); WHITE BLOOD COUNT 13.7 X10e3 (4.0-10.5)
[2016-11-28 09:46] LABS: POC - CKMB 3.6 ng/mL (0.0-7.9); POC - TROPONIN <0.05 ng/mL (<=0.05)
[2016-11-28 09:49] LABS: INR 1.1; PARTIAL THROMBOPLASTIN TIME 26.6 SECONDS (23.5-31.3); PROTHROMBIN TIME (PATIENT) 11.4 SECONDS (9.6-11.5)
[2016-11-28 09:53] LABS: DIFF IND NO
[2016-11-28 09:58] LABS: ARTERIAL BLD GAS O2 SATURATION 92.9 % (90.0-100.0); ARTERIAL BLOOD GAS ALLEN TEST NORMAL; ARTERIAL BLOOD GAS ART SITE RIGHT RADIAL; ARTERIAL BLOOD GAS CARBOXY HB 1.1 %sat (0.0-9.0); ARTERIAL BLOOD GAS DELIVERY VENTURI MASK; ARTERIAL BLOOD GAS HCO3 29.2 mmol/L; ARTERIAL BLOOD GAS MET HB 0.5 %sat (0.0-2.0); ARTERIAL BLOOD GAS PCO2 36.9 mmHg (35.0-45.0); ARTERIAL BLOOD GAS PO2 64.7 mmHg (80.0-100); ARTERIAL BLOOD GAS pH 7.507 (7.350-7.450); ARTERIAL DRAW? YES
[2016-11-28 10:08] LABS: BILIRUBIN, DIRECT 0.2 mg/dL (0.0-0.2); BILIRUBIN,INDIRECT 0.7 mg/dL (0.0-0.9); BILIRUBIN,TOTAL 0.9 mg/dL (0.2-2.0); CREATININE SERUM 1.1 mg/dL (0.6-1.4); GLOM FILT RATE Estimated 50.8 mL/min (>60); POTASSIUM 4.5 mmol/L (3.5-5.1); PROTEIN TOTAL SERUM 6.8 g/dL (6.0-8.3)
[~2016-11-28 10:20] MED LIST changes: -ALPRAZOLAM0.5 MG PO; -DEXAMETHASONE4 MG PO; -LISINOPRIL-HCTZ1 T17 PO; -LORTAB 7.51 TAB PO; -OXYGEN INH; -PAROXETINE PO; -SINGULAIR PO; -TRAZODONE HCL100 MG PO; -[UNRECOGNIZED DRUG - OTHER]
[2016-11-28] MEDS ORDERED: OXYGEN INH (10:48)
[2016-11-28] MEDS ORDERED: [UNRECOGNIZED DRUG - OTHER] (10:48)
[2016-11-28] MEDS ORDERED: SYMBICORT INH (10:50)
[2016-11-28] MEDS ORDERED: ALPRAZOLAM0.5 MG PO (10:50)
[2016-11-28] MEDS ORDERED: DEXAMETHASONE4 MG PO (10:55)
[2016-11-28] MEDS ORDERED: PAROXETINE PO (10:55)
[2016-11-28] MEDS ORDERED: LORTAB 7.51 TAB PO (10:56)
[2016-11-28] MEDS ORDERED: LISINOPRIL-HCTZ1 T17 PO (11:02)
[2016-11-28] MEDS ORDERED: SIMVASTATIN20 MG PO (11:03)
[2016-11-28] MEDS ORDERED: TRAZODONE HCL100 MG PO (11:03)
[2016-11-28] MEDS ORDERED: SINGULAIR PO (11:04)
[2016-11-28 11:24] LABS: INFLUENZA A NEG (NEG); INFLUENZA B NEG (NEG)
[2016-11-28 11:42] LABS: POC - CKMB 1.9 ng/mL (0.0-7.9); POC - TROPONIN <0.05 ng/mL (<=0.05)
[2016-11-28 13:44] LABS: ARTERIAL BLD GAS O2 SATURATION 92.3 % (90.0-100.0); ARTERIAL BLOOD GAS ALLEN TEST NORMAL; ARTERIAL BLOOD GAS ART SITE LEFT RADIAL; ARTERIAL BLOOD GAS CARBOXY HB 1.1 %sat (0.0-9.0); ARTERIAL BLOOD GAS HCO3 26.7 mmol/L; ARTERIAL BLOOD GAS MET HB 0.9 %sat (0.0-2.0); ARTERIAL BLOOD GAS PCO2 45.9 mmHg (35.0-45.0); ARTERIAL BLOOD GAS PO2 74.3 mmHg (80.0-100); ARTERIAL BLOOD GAS pH 7.373 (7.350-7.450); ARTERIAL DRAW? YES
[2016-11-28 13:45] LABS: ARTERIAL BLOOD GAS DELIVERY VENTURI MASK
[2016-11-28 14:21] LABS: PROCALCITONIN 0.46 NG/ML
[2016-11-28 14:33] LABS: FOLATE (FOLIC ACID) 6.8 ng/mL (>5.8)
[2016-11-28 15:39] LABS: ARTERIAL BLD GAS O2 SATURATION 93.6 % (90.0-100.0); ARTERIAL BLOOD GAS CARBOXY HB 0.6 %sat (0.0-9.0); ARTERIAL BLOOD GAS HCO3 26.5 mmol/L; ARTERIAL BLOOD GAS MET HB 0.6 %sat (0.0-2.0); ARTERIAL BLOOD GAS PCO2 42.1 mmHg (35.0-45.0); ARTERIAL BLOOD GAS pH 7.406 (7.350-7.450)
[2016-11-28 15:41] LABS: ARTERIAL BLOOD GAS ALLEN TEST NORMAL; ARTERIAL BLOOD GAS ART SITE RIGHT RADIAL; ARTERIAL BLOOD GAS DELIVERY VENTI-MASK; ARTERIAL BLOOD GAS PO2 75.4 mmHg (80.0-100); ARTERIAL DRAW? YES
[2016-11-28 17:13] LABS: ARTERIAL BLD GAS O2 SATURATION 70.2 % (90.0-100.0); ARTERIAL BLOOD GAS CARBOXY HB 0.9 %sat (0.0-9.0); ARTERIAL BLOOD GAS HCO3 27.8 mmol/L; ARTERIAL BLOOD GAS MET HB 0.7 %sat (0.0-2.0); ARTERIAL BLOOD GAS PCO2 48.3 mmHg (35.0-45.0); ARTERIAL BLOOD GAS pH 7.369 (7.350-7.450)
[2016-11-28 17:14] LABS: ARTERIAL BLOOD GAS PO2 40.5 mmHg (80.0-100)
[2016-11-28 18:11] LABS: CK TOTAL 37 IU/L (26-140)
[2016-11-29 00:04] LABS: ARTERIAL BLD GAS O2 SATURATION 95.1 % (90.0-100.0); ARTERIAL BLOOD GAS CARBOXY HB 0.5 %sat (0.0-9.0); ARTERIAL BLOOD GAS HCO3 27.1 mmol/L; ARTERIAL BLOOD GAS MET HB 0.7 %sat (0.0-2.0); ARTERIAL BLOOD GAS PCO2 43.7 mmHg (35.0-45.0)
[2016-11-29 00:06] LABS: ARTERIAL BLOOD GAS ALLEN TEST NORMAL; ARTERIAL BLOOD GAS ART SITE LEFT RADIAL; ARTERIAL BLOOD GAS DELIVERY VENTURI MASK; ARTERIAL DRAW? YES
[2016-11-29 00:16] LABS: CK TOTAL 33 IU/L (26-140)
[2016-11-29 03:46] LABS: HEMATOCRIT 30.4 % (35.0-45.0); MEAN CELL VOLUME 86.8 FL (83-96); MEAN CORPUSCULAR HEMOGLOBIN 29.1 PG (28-34); MEAN CORPUSCULAR HGB CONC 33.5 g/dL (30-36); MEAN PLATELET VOLUME 6.9 FL (6.5-11.5); RED BLOOD COUNT 3.5 X10e (3.90-5.30); RED CELL DISTRIBUTION WIDTH 16.8 % (11.0-15.5); WHITE BLOOD COUNT 10.8 X10e3 (4.0-10.5)
[2016-11-29 03:47] LABS: HEMOGLOBIN 10.2 gm/dL (12.0-16.0)
[2016-11-29 04:00] LABS: INR 1.2; PROTHROMBIN TIME (PATIENT) 12.3 SECONDS (9.6-11.5)
[2016-11-29 04:28] LABS: ALBUMIN SERUM 2.2 g/dL (3.5-5.0); BILIRUBIN,TOTAL 0.9 mg/dL (0.2-2.0); BUN/CREATININE RATIO 45.71; CALCIUM SERUM 8.6 mg/dL (8.4-10.2); CREATININE SERUM 0.7 mg/dL (0.6-1.4); GLOM FILT RATE Estimated 87.8 mL/min (>60); POTASSIUM 3.5 mmol/L (3.5-5.1); PROTEIN TOTAL SERUM 5.3 g/dL (6.0-8.3)
[2016-11-29 10:01] LABS: ARTERIAL DRAW? NO
[2016-11-30 05:32] LABS: ARTERIAL BLD GAS O2 SATURATION 91.1 % (90.0-100.0); ARTERIAL BLOOD GAS CARBOXY HB 0.4 %sat (0.0-9.0); ARTERIAL BLOOD GAS HCO3 26.4 mmol/L; ARTERIAL BLOOD GAS MET HB 0.8 %sat (0.0-2.0); ARTERIAL BLOOD GAS pH 7.428 (7.350-7.450)
[2016-11-30 05:35] LABS: BASOPHIL% 0.2 % (0-2.5); HEMATOCRIT 28.2 % (35.0-45.0); HEMOGLOBIN 9.2 gm/dL (12.0-16.0); LYMPHOCYTE# 0.1 X10e3 (1.0-3.5); LYMPHOCYTE% 0.7 % (17.0-45.0); MEAN CELL VOLUME 86.6 FL (83-96); MEAN CORPUSCULAR HEMOGLOBIN 28.4 PG (28-34); MEAN CORPUSCULAR HGB CONC 32.8 g/dL (30-36); MEAN PLATELET VOLUME 6.8 FL (6.5-11.5); MONOCYTE# 0.4 X10e3 (0-1.0); MONOCYTE% 3.1 % (3.0-12.0); PLATELET COUNT 204 X10e3 (140-420); RED BLOOD COUNT 3.26 X10e (3.90-5.30); RED CELL DISTRIBUTION WIDTH 16.5 % (11.0-15.5); WHITE BLOOD COUNT 12.5 X10e3 (4.0-10.5)
[2016-11-30 05:35] LABS: ARTERIAL BLOOD GAS ALLEN TEST NORMAL; ARTERIAL BLOOD GAS ART SITE LEFT RADIAL; ARTERIAL BLOOD GAS DELIVERY NASAL CANNULA; ARTERIAL BLOOD GAS PO2 61.3 mmHg (80.0-100); ARTERIAL DRAW? YES
[2016-11-30 05:40] LABS: DIFF IND NO
[2016-11-30 06:22] LABS: BUN/CREATININE RATIO 37.14; CALCIUM SERUM 8.5 mg/dL (8.4-10.2); CREATININE SERUM 0.7 mg/dL (0.6-1.4); GLOM FILT RATE Estimated 87.8 mL/min (>60); POTASSIUM 3.9 mmol/L (3.5-5.1)
[2016-11-30 10:55] LABS: PROTEIN, BODY FLUID 2.3 gm/dL
[2016-12-01 03:56] LABS: BASOPHIL# 0.1 X10e3 (0-0.3); BASOPHIL% 0.6 % (0-2.5); HEMATOCRIT 29.9 % (35.0-45.0); HEMOGLOBIN 9.8 gm/dL (12.0-16.0); LYMPHOCYTE# 0.1 X10e3 (1.0-3.5); LYMPHOCYTE% 0.5 % (17.0-45.0); MEAN CELL VOLUME 86.6 FL (83-96); MEAN CORPUSCULAR HEMOGLOBIN 28.3 PG (28-34); MEAN CORPUSCULAR HGB CONC 32.7 g/dL (30-36); MEAN PLATELET VOLUME 7.2 FL (6.5-11.5); MONOCYTE# 0.4 X10e3 (0-1.0); MONOCYTE% 2.9 % (3.0-12.0); NEUTROPHIL# 11.8 X10e3 (1.5-7.1); PLATELET COUNT 217 X10e3 (140-420); RED BLOOD COUNT 3.45 X10e (3.90-5.30); RED CELL DISTRIBUTION WIDTH 16.8 % (11.0-15.5); WHITE BLOOD COUNT 12.3 X10e3 (4.0-10.5)
[2016-12-01 03:57] LABS: DIFF IND NO
[2016-12-01 04:18] LABS: CALCIUM SERUM 8.6 mg/dL (8.4-10.2); CREATININE SERUM 0.5 mg/dL (0.6-1.4); GLOM FILT RATE Estimated 98.1 mL/min (>60); MAGNESIUM 1.7 mg/dL (1.6-3.0); POTASSIUM 3.5 mmol/L (3.5-5.1)
[2016-12-01 04:20] LABS: PHOSPHOROUS 0.9 mg/dL (2.5-4.6)
[2016-12-01 04:27] LABS: ARTERIAL BLD GAS O2 SATURATION 93.7 % (90.0-100.0); ARTERIAL BLOOD GAS CARBOXY HB 0.5 %sat (0.0-9.0); ARTERIAL BLOOD GAS HCO3 27.5 mmol/L; ARTERIAL BLOOD GAS MET HB 0.7 %sat (0.0-2.0); ARTERIAL BLOOD GAS PCO2 37.7 mmHg (35.0-45.0); ARTERIAL BLOOD GAS pH 7.471 (7.350-7.450)
[2016-12-01 04:36] LABS: ARTERIAL BLOOD GAS PO2 66.6 mmHg (80.0-100)
[2016-12-01 04:37] LABS: ARTERIAL BLOOD GAS ALLEN TEST NORMAL; ARTERIAL BLOOD GAS ART SITE LEFT RADIAL; ARTERIAL BLOOD GAS DELIVERY NASAL CANNULA; ARTERIAL DRAW? YES
== END 2016-12-04 01:15 | disposition expired | DRG 871 ==
LOC: CED 10:20 → CEDOF 12:25 → CICCU3 15:10 → C2A 12-01 13:14
PROVIDERS: Emergency Medicine; Family Medicine; Internal Medicine; Internal Medicine Cardiovascular Disease; Internal Medicine Pulmonary Disease
PROC: B24BYZZ Ultrasonography of Heart with Aorta using Other Contrast (ICD-10-PCS; 2016-11-28)
PROC: 0W9930Z Drainage of Right Pleural Cavity with Drainage Device, Percutaneous Approach (ICD-10-PCS; principal; 2016-11-30)
DX: A41.9 Sepsis, unspecified organism (principal); J96.21 Acute and chronic respiratory failure with hypoxia; E43 Unspecified severe protein-calorie malnutrition; G93.41 Metabolic encephalopathy; J15.211 Pneumonia due to Methicillin susceptible Staphylococcus aureus; J91.0 Malignant pleural effusion; C34.90 Malignant neoplasm of unspecified part of unspecified bronchus or lung; I48.91 Unspecified atrial fibrillation; Z99.81 Dependence on supplemental oxygen; E87.1 Hypo-osmolality and hyponatremia; J44.9 Chronic obstructive pulmonary disease, unspecified; I10 Essential (primary) hypertension; Z90.49 Acquired absence of other specified parts of digestive tract; E78.5 Hyperlipidemia, unspecified; F17.210 Nicotine dependence, cigarettes, uncomplicated; I49.1 Atrial premature depolarization; E83.42 Hypomagnesemia; Z51.5 Encounter for palliative care; Z66 Do not resuscitate; R62.7 Adult failure to thrive; R74.9 Abnormal serum enzyme level, unspecified; Z68.25 Body mass index [BMI] 25.0-25.9, adult
CPT/HCPCS: 36600; 51702; 70450; 71010; 80048; 80053; 80061; 80076; 80200; 82140; 82308; 82550; 82553; 82607; 82746; 82803; 82947; 83605; 83615; 83735; 83986; 84100; 84132; 84157; 84443; 84484; 85025; 85027; 85610; 85730; 87040; 87070; 87077; 87186; 87205; 87449; 87804; 87899; 88108; 88305; 92610; 93005; 93306; 94640; 94664; 94760; 96365; 96366; 99291; 99292; C9113; G8996-GN; G8997-GN; G8998-GN; J0282; J0360; J1650; J2060; J2270; J2543; J2930; J3260; J3370; J3475